=== PATIENT | female | born 2000 | race Caucasian/White ===

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

== ENCOUNTER 2018-11-12 01:01 | Emergency (ER) | payer OTHER ==
[~2018-11-12] VITALS: Ht 165.1 cm; Wt 93.4 kg
[2018-11-12 01:03] VITALS: Ht 165.1 cm; Wt 93.4 kg
[2018-11-12 02:00] VITALS: BP 125/84
== END 2018-11-12 03:11 | disposition home or self-care (01) ==
LOC: ED 01:01
DX: H60.91 Unspecified otitis externa, right ear (principal); Z98.890 Other specified postprocedural states
CPT/HCPCS: J1885

== ENCOUNTER 2018-11-13 20:44 | Emergency (ER) | payer OTHER ==
[~2018-11-13] VITALS: Ht 167.6 cm; Wt 91.6 kg
[2018-11-13 21:24] VITALS: Ht 167.6 cm; Wt 91.6 kg
[2018-11-13 23:24] VITALS: BP 129/85
== END 2018-11-13 23:24 | disposition home or self-care (01) ==
LOC: ED 20:44
DX: H60.91 Unspecified otitis externa, right ear (principal); Z98.890 Other specified postprocedural states

== ENCOUNTER 2019-05-31 15:19 | Emergency (ER) | payer OTHER ==
[~2019-05-31] VITALS: Ht 165.1 cm; Wt 97.5 kg
[2019-05-31 15:24] VITALS: Ht 165.1 cm; Wt 97.5 kg
[2019-05-31 16:04] VITALS: BP 153/90
== END 2019-05-31 16:04 | disposition home or self-care (01) ==
LOC: ED 15:19
DX: H60.92 Unspecified otitis externa, left ear (principal)

== ENCOUNTER 2019-06-01 15:19 | Emergency (ER) | payer OTHER ==
[~2019-06-01] VITALS: Ht 165.1 cm; Wt 96.6 kg
[2019-06-01 15:28] VITALS: BP 135/90; Ht 165.1 cm; Wt 96.6 kg
== END 2019-06-01 16:31 | disposition home or self-care (01) ==
LOC: ED 15:19
DX: H60.92 Unspecified otitis externa, left ear (principal)
CPT/HCPCS: J1885